=== PATIENT | female | born 1965 | race Caucasian/White ===

== ENCOUNTER → 2018-03-14 10:15 | Outpatient (CLI) | payer MEDICAID ==
[2015-08-05 09:53] VITALS: BMI 35.6
[~2018-03-14 10:15] MED LIST: DESERYL100 MG PO; GLIPIZIDE10 MG PO; GLUCOPHAGE XR750 MG PO; IBUPROFEN800 MG PO; INDERAL10 MG PO; NEURONTIN800 MG PO; PRAVASTATIN SOD10 MG PO; REMERON15 MG PO
== END | disposition home or self-care (01) ==
LOC: D.MRI 10:00
DX: R93.2 Abnormal findings on diagnostic imaging of liver and biliary tract (principal)

== ENCOUNTER → 2018-06-19 09:17 | Outpatient (CLI) | payer MEDICAID ==
[2015-08-05 09:53] VITALS: BMI 35.6
[2018-06-19 10:27] LABS: CREATININE - SERUM 0.4 mg/dL (0.6-1.3)
== END | disposition home or self-care (01) ==
LOC: D.MRI 06-12 09:00
PROVIDERS: Nurse Practitioner Family
DX: R10.9 Unspecified abdominal pain (principal)

== ENCOUNTER 2018-08-04 06:31 | Day surgery (SDC) | payer MEDICAID ==
[~2018-08-04] VITALS: Ht 165.1 cm; Wt 93.9 kg
[~2018-08-04 06:31] MED LIST changes: +ALBUTEROL1.25 MG/3; +LEVEMIR IN100 UNITS/ SC; +LIPITOR20 MG PO; +LISINOPRIL20 MG PO; +PROTONIX40 MG PO; +SYMBICORT 16010.2 GM INH; +VESICARE10 MG PO
[2018-08-04 06:55] LABS: CALC OSMOLALITY 288 mosm/kg (275-300); CALCIUM 8.7 mg/dL (8.5-10.1); CARBON DIOXIDE 24.2 mmol/L (21.0-32.0); CHLORIDE - SERUM 107 mmol/L (98-107); CREATININE - SERUM 0.8 mg/dL (0.6-1.3); GLUCOSE 213 mg/dL (74-106); POTASSIUM - SERUM 3.9 mmol/L (3.5-5.1); SODIUM 142 mmol/L (136-145); UREA NITROGEN 13 mg/dL (7-18); eGFR NON AFRICAN AMERICAN 79 mL/min (90-120)
[2018-08-04 07:02] LABS: HEMATOCRIT 45.7 % (36.0-48.0); HEMOGLOBIN 14.9 g/dL (12-16); MCH 29.9 pg (26.0-34.0); MCHC 32.6 g/dL (31.0-37.0); MCV 91.8 fL (80.0-100.0); MEAN PLATELET VOLUME 11.4 fL (7.4-10.4); RBC 4.98 10x6/uL (4.00-5.40); RDW 13.2 % (11.5-14.5); WBC 11.6 10x3/uL (4.8-10.8)
[2018-08-04] MEDS ORDERED: FLUTICASONE PRO16 GM NASAL (08:25)
[2018-08-04] MEDS ORDERED: PHENERGAN25 M1 PO (08:26)
[2018-08-04] MEDS ORDERED: HYDROCODON-ACE1 EAC2 (08:26)
[2018-08-04 08:33] VITALS: BP 113/63; Ht 165.1 cm; Wt 93.9 kg
--- NOTE | 2018-08-04 13:03 | NUR ---
CONSULTED ANESTHESIA REGARDING INCREASED ANXIETY. VERBAL ORDERS RECEIVED TO ADMINISTER VERSED 1MG X1 IN PACU NOW. MAY REPEAT VERSED 1MG X1 IN PACU, PRN. WILL CONTINUE TO MONITOR.
--- NOTE | 2018-08-04 13:50 | NUR ---
DR HARPER NOTIFIED OF PATIENT'S PAIN LEVEL OF 10. ORDER RECEIVED FOR PO DILAUDID
--- NOTE | 2018-08-04 15:45 | NUR ---
DR HARPER PAGED REGARDING PATIENT'S COMPLAINTS OF PAIN AND REFUSAL TO GET OUT OF BED. DR HARPER RETURNS CALL AND STATES HE FEELS LIKE ANXIETY IS PLAYING A ROLE AND ORDERS LORAZEPAM
--- NOTE | 2018-08-04 17:35 | NUR ---
DR HARPER PAGED REGARDING PATIENT'S CONTINUED COMPLAINTS OF PAIN, RATES PAIN AT 9 WHEN STILL AND "GREATER THAN 10" WHEN MOVING. SAYS PAIN IS SHARP IN RIGHT ABDOMEN. REPORTED STABLE VITAL SIGNS AND CONDITION OF PATIENT. DR HARPER STATES "I STILL WANT HER TO GO HOME. LET ME KNOW IF SHE IS RESISTANT THOUGH." PATIENT STATES "I WANT TO GO HOME. I CAN MEDICATE MYSELF BETTER THERE ANYWAY." PATIENT MOANING WHILE SITTING UP IN CHAIR. SPOUSE LEAVES TO E [employer] DILAUDID FROM PHARMACY.
--- NOTE | 2018-08-04 18:15 | NUR ---
PATIENT DISCHARGED HOME VIA WHEELCHAIR TO PRIVATE VEHICLE. PATIENT AGREEABLE TO DISCHARGE, STABLE WITH AMBULATION
--- NOTE | 2018-08-05 14:41 | OP ---
PATIENT NAME: NATALIE DURAN MEDICAL RECORD: [id number] :63 LOCATION:D[facility] ADMISSION DATE: SURGEON: ARABELLA HARPER MD DATE OF OPERATION: 08/04/2018 PREOPERATIVE DIAGNOSIS: Symptomatic gallstones. POSTOPERATIVE DIAGNOSES: 1. Symptomatic gallstones. 2. Hepatomegaly and patchy fatty infiltration of the liver. PROCEDURES: 1. Laparoscopic cholecystectomy. 2. Intraoperative cholangiography without immediate surgeon interpretation. 3. 14-gauge core needle liver biopsy. SURGEON: Arabella Harper MD CHEESE PACKER: None. BLOOD LOSS: Less than 25 cc. ANESTHESIA: General. COMPLICATIONS: None. The indication for the liver biopsy was hepatomegaly as well as fatty infiltration of the liver, which was pretty significant and was patchy. OPERATIVE COURSE: The patient was conveyed to the operating room electively on 08/04/2018. General anesthesia was induced by the anesthesia staff. The abdomen was sterilely prepped and draped. A small skin néstor was accomplished in the left upper quadrant. A Veress needle was inserted through the skin néstor into the peritoneal cavity. CO2 insufflation was begun. Once a sufficient pneumoperitoneum had been achieved, a 5-mm trocar was inserted through an incision in the right upper quadrant. Under direct internal vision utilizing a television camera, a 12-mm trocar was inserted through an incision at the umbilicus. Two more trocars were inserted. A 5-mm trocar was inserted in the epigastrium. Another 5-mm trocar was inserted far laterally in the right upper quadrant. During insertion of the Veress needle and all trocars, there appeared to have been no injury to the bowels, any intraperitoneal or retroperitoneal structures. The indication for the liver biopsy was hepatomegaly. Under laparoscopic guidance, I percutaneously accessed the right upper quadrant utilizing a 14-gauge core needle liver biopsy device. Cores were obtained over the convexity of the liver. The biopsy sites were made hemostatic with electrocautery. I then advanced the cholangiogram trocar. I punctured the fundus of the gallbladder. I aspirated bile. I then injected dye. Static fluoroscopic images were obtained. These cholangiographic images are sent to the radiologist for interpretation. I withdrew the cholangiogram trocar. The gallbladder was grasped and retracted cephalad. The infundibulum was grasped and retracted laterally. Critical view of the triangle of Calot was visualized. Blunt dissection was begun on the OPERATIVE REPORT [id number] NATALIE DURAN triangle of Calot. One cystic artery and one cystic duct were identified. These were clipped multiply and divided between clips. The gallbladder was then excised from its bed and the liver. It was placed within an Endobag retrieval device and was withdrawn through the umbilical fascia defect. The 12-mm trocars were placed and the abdomen reinsufflated. I irrigated and aspirated in the right upper quadrant. There was no bleeding even at low pressure of 8. The Benjamin-Emmy suture closure device and 0 Vicryl sutures were used to close the umbilical fascia. All the trocars were removed and the abdomen desufflated. The incision at the umbilicus was closed with interrupted 4-0 Vicryl Rapide sutures. The other skin incisions were closed with interrupted intracuticular 3-0 Vicryls. Benzoin and Steri-Strips were applied. The patient was then extubated and conveyed to post-anesthesia care unit where she was in stable condition. TRANSINT:[id number] Voice Confirmation ID: [id number] DOCUMENT ID: [id number] ARABELLA HARPER MD at 1441 CC: ALEX PACE [id number] DICTATION DATE: 08/04/18 1151 [employer] SALESPERSON: 08/04/18 1203 [facility] 08/04/18 [facility] [address] [place] [address]
== END 2018-08-04 18:15 | disposition home or self-care (01) ==
LOC: D.OPS 06:31 → D.PAN 09:30 → D.OPS 09:30
PROVIDERS: Anesthesiology; ATTEND Surgery
DX: K80.10 Calculus of gallbladder with chronic cholecystitis without obstruction (principal); K76.0 Fatty (change of) liver, not elsewhere classified; Z01.812 Encounter for preprocedural laboratory examination